=== PATIENT | male | born 1985 | race Caucasian/White ===

== ENCOUNTER 2017-02-05 16:02 | Emergency (ER) | payer OTHER ==
--- NOTE | 2017-02-05 17:53 | RAD ---
PORTABLE AP CHEST X-RAY: 02/05/17 HISTORY: Cough and congestion for one week. FINDINGS: The cardiac silhouette and pulmonary vasculature are within normal limits for the portable technique of the study. Lungs are clear. Osseous structures are intact. IMPRESSION: No acute cardiopulmonary process. POS: [facility]
== END 2017-02-05 18:19 | disposition home or self-care (01) ==
LOC: ERS 16:02
DX: J06.9 Acute upper respiratory infection, unspecified (principal); F17.200 Nicotine dependence, unspecified, uncomplicated
CPT/HCPCS: 71010

== ENCOUNTER 2018-12-26 13:48 | Emergency (ER) | payer OTHER ==
[2018-12-26] MEDS ORDERED: Lidocaine Viscous Sol 2% 15 ml UD Cup ONE (14:22)
== END 2018-12-26 15:20 | disposition home or self-care (01) ==
LOC: ERS 13:48
DX: T16.2XXA Foreign body in left ear, initial encounter (principal)
CPT/HCPCS: 69200

== ENCOUNTER 2019-11-30 13:42 | Outpatient (CLI) | payer OTHER ==
--- NOTE | 2019-11-30 13:54 | RAD ---
EXAM: 3 views of the left wrist HISTORY: Wrist pain COMPARISON: None FINDINGS: 3 views of the left wrist shows no evidence of acute fracture or dislocation. No soft tissu e swelling is seen. No degenerative changes are present. IMPRESSION: No evidence of acute osseous abnormality.
== END 2019-11-30 13:43 | disposition home or self-care (01) ==
LOC: RAD-FRANK 13:42
PROVIDERS: ATTEND Nurse Practitioner Family
DX: M25.532 Pain in left wrist (principal)